=== PATIENT | male | born 1950 | race Caucasian/White ===

== ENCOUNTER 2021-11-10 10:00 | Outpatient (RCR) | payer MEDICARE, SELFPAY ==
--- NOTE | 2021-10-30 13:44 | PTOPEVAL ---
Thank you for referring Nikos Pizarro to [facility] [place].? The patient is scheduled to be seen for therapy? 2 x/week for 6 weeks. Please review, sign, date and return this plan of care OZIEL. I agree with and certify that the following plan of care is medically necessary. Referring Physician Date Attending Provider: Rona Caba, DO Diagnosis acute low back pain Onset 3 wks Cause lifting poorly Additional Evaluation Detail 2 yrs ago had PT for his back. He started wearing his back brace again. Subjective Information He hurt his back when he was Query Text:As Reported By Patient/ lifting and twisting with a Family movement. As well as with prolonged flexed position in the cold. He does not perform HEP. He performs lots of yard work and outdoor activities. He walks his dogs 1/2 mile daily. He is concerned with walking his dog due to his dog pulls alot. He reports limitations with lifting, walking, sitting, standing and daily task. C/o increased tenderness and tightness of right low back region. Previous Treatments Previous Treatments For This Problem 2 yrs ago Pain Assessment Self Report Pain Assessment Lower Back Reported Pain Level 4 Pain Description Aching,Sharp,Tender on Palpation,Tightness Pain Frequency Continuous Lowest Pain Intensity 2 Greatest Pain Intensity 8 Pain Aggravating Factors ADL's,Bending,Exercise/ Activity,Lifting,Prolonged Position,Sitting,Stair Climbing,Walking,Weight Bearing/Standing Cervical and Lumbar ROM Lumbar ROM Lumbar Flexion Active Mid Ralph:Hands to: Lumbar Comments 25% trunk ext with pain, flex: 50% with pain lateral flex: mid thigh: pulling/tightness Cervical and Lumbar Muscle Testing Lumbar Strength Lumbar Functional Strength Comments unable to maintain trunk in midline with seated marching or single leg stance. Lower Extremity Muscle Strength Testing General Lower Extremity Strength Gross Lower Extremity Strength right hip flex: 4/5, ext: 4-5,
--- NOTE | 2021-11-02 13:31 | PCPTNOTE ---
Patient called & cancelled scheduled appointment this date due to inclement weather.
--- NOTE | 2021-11-14 07:52 | PCPTNOTE ---
Patient called & cancelled scheduled appointment this date due to a fall at home.
--- NOTE | 2021-11-14 15:01 | PCPTNOTE ---
Pt called to say he cracked some ribs following his fall today. He does not want to be DC from therapy due to unable to attend therapy. He was informed his chart can remain open for only 30 days.
--- NOTE | 2021-12-15 09:40 | PCPTNOTE ---
Admitting Provider: Attending Provider: Rona Caba, DO Patient:Nikos Pizarro Date of :1950 Physical Therapy Discharge Summary Patient has not returned for any further treatments since 11/10/2021, therefore he will be discharged at this time. Patient?s initial visit was on 10/30/2021 and he had a total of 4 visits. He had to cancel his follow up visits due to fall and broken bones. The goals have been not met due to limited therapy visits. Thank you for referring this patient to [facility]. Please review, sign, date and return this discharge summary OZIEL. I have been updated about the patient's current status and I agree with discharge from the above service at this time. Referring Physician Date
== END 2021-12-18 15:30 | disposition home or self-care (01) ==
LOC: ANHPT 10:00
PROVIDERS: PCP Family Medicine; Visit Provider Family Medicine
DX: M54.50 Low back pain, unspecified (principal); M48.061 Spinal stenosis, lumbar region without neurogenic claudication
CPT/HCPCS: 97014; 97110; 97140; 97162; 97530; G0283

== ENCOUNTER 2023-03-06 17:22 | Emergency (ER) | payer MEDICARE, SELFPAY ==
--- NOTE | ~2023-03-06 | XR_ITS ---
EXAM: XR wrist LT min 3V DATE: 03/06/2023 19:22 HISTORY: laceration to dorsal hand/wrist, r/o fb/fx . COMPARISON: None available. FINDINGS: Normal mineralization. Old ulnar styloid fracture. No acute fracture or dislocation. No ly tic or blastic lesion. Polyarticular osteoarthritis. No erosion or periosteal change. Soft tissues wi thin normal limits. IMPRESSION: No acute osseous finding in the left wrist. No radiopaque foreign body. Reviewed, dictated and finalized at location K. IMPRESSION: No acute osseous finding in the left wrist. No radiopaque foreign b cheri.
[2023-03-06 18:05] VITALS: BP 155/93; PULSE 75; RESP 18; TEMP 37.2; O2SAT 99
--- NOTE | 2023-03-06 18:47 | ED.GENADULT ---
HPI - General Adult General Chief complaint: Wound/Laceration <CHARLES Muro Filed: 03/07/23 03:35> Stated complaint: Left hand lac <CHARLES Muro Filed: 03/07/23 03:35> Time Seen by Provider: 03/06/23 18:24 <CHARLES Muro Last Filed: 03/07/23 03:35> Source: patient <CHARLES Muro Filed: 03/07/23 03:35> Mode of arrival: ambulatory <CHARLES Muro Filed: 03/07/23 03:35> Limitations: no limitations <CHARLES Muro Filed: 03/07/23 03:35> History of Present Illness HPI narrative: Patient is a 72 y/o male who presents to the ED with c/o L hand laceration. 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 He sustained a large laceration to his left dorsal hand and wrist. No active bleeding upon my evaluation. Patient denies any other injuries. Denies any numbness or tingling. Denies significant pain. Tetanus status unknown. <CHRALES Muro Last Filed: 03/07/23 03:35> Related Data Allergies/adverse reactions: Allergies Allergy/AdvReac Type Severity Reaction Status Date / Time Penicillins Allergy Unknown Rash Verified 03/06/23 18:04 <CHARLES Muro Last Filed: 03/07/23 03:35> Review of Systems Review of Systems: CONSTITUTIONAL: Denies fever, chills, or sweats. SKIN: See HPI. MUSCULOSKELETAL: See HPI. NEUROLOGIC: Denies tingling, numbness, or weakness. <CHARLES Muro Last Filed: 03/07/23 03:35> All systems reviewed & are unremarkable except as noted in HPI and below <CHARLES Muro Filed: 03/07/23 03:35> Exam Narrative: GENERAL: Well appearing, well-nourished, non-toxic, in no acute distress. HEAD: Normocephalic, atraumatic. NECK: Supple. No adenopathy, no masses. RESPIRATORY: Airway patent, respirations nonlabored. Clear to auscultation bilaterally, no rales, rhonchi, wheezing. CARDIOVASCULAR: Regular rate and rhythm without murmurs, rubs, or gallops. Radial pulses 2+ and equal bilaterally. MUSCULOSKELETAL: Moves all extremities. Strength/ROM intact without gross deformities. Full range of motion of left hand and fingers. Large 7 cm laceration, fairly superficial to dorsal surface of mid left hand extending over distal radius/ulna, no active bleeding. No signs of deeper injury though tendons and veins are visible through laceration. Capillary refill intact to all digits. Distal sharp sensation intact over dorsal hand and fingers. SKIN: Warm, dry, normal color. No rashes. NEURO: A&O X3. Speech clear. Cranial nerves II-XII grossly intact. Steady gait. No ataxic movements. PSYCHIATRIC: Appropriate mood and affect. Normal interaction. <CHARLES Muro Last Filed: 03/07/23 03:35> Course Vital Signs Vital signs: Vital Signs Temperature 98.9 F 03/06/23 18:05 Pulse Rate 75 03/06/23 18:05 Respiratory Rate 18 03/06/23 18:05 Blood Pressure 155/93 H 03/06/23 18:05 Pulse Oximetry 99 03/06/23 18:05 Oxygen Delivery Room Air 03/06/23 18:05 Temperature 98.9 F 03/06/23 18:05 Pulse Rate 67 03/06/23 21:10 Respiratory Rate 18 03/06/23 21:10 Blood Pressure 155/93 H 03/06/23 18:05 Pulse Oximetry 95 03/06/23 21:10 Oxygen Delivery Room Air 03/06/23 18:05 <Katy Martinez PA-C - Last Filed: 03/07/23 03:35> Vital Signs Temperature 98.9 F 03/06/23 18:05 Pulse Rate 75 03/06/23 18:05 Respiratory Rate 18 03/06/23 18:05 Blood Pressure 155/93 H 03/06/23 18:05 Pulse Oximetry 99 03/06/23 18:05 Oxygen Delivery Room Air 03/06/23 18:05 Temperature 98.9 F 03/06/23 18:05 Pulse Rate 67 03/06/23 21:10 Respiratory Rate 18 03/06/23 21:10 Blood Pressure 155/93 H 03/06/23 18:05 P
[2023-03-06] MEDS: LIDOCAINE HCL 1% LOCAL INJ 10 ML VIAL 5 ML INFILTRATE (19:08)
[2023-03-06] MEDS: TETANUS,DIPHTHERIA,AC PERTUSSIS ADULT (0.5 ML) BOOSTRIX IM (19:58)
[2023-03-06 21:10] VITALS: PULSE 67; RESP 18; O2SAT 95
== END 2023-03-06 21:14 | disposition home or self-care (01) ==
PROVIDERS: Emergency Provider Physician Assistant; PCP Registered Nurse
DX: S61.412A Laceration without foreign body of left hand, initial encounter (principal); Z23 Encounter for immunization; W26.8XXA Contact with other sharp object(s), not elsewhere classified, initial encounter
CPT/HCPCS: 12002; 73110; 90471; 90715; 99283